=== PATIENT | male | born 1985 | race Caucasian/White ===

== ENCOUNTER 2021-02-17 13:08 | Emergency (ER) | payer OTHER ==
[2021-02-17 13:44] LABS: BASOPHIL 0.1 % (0-2); BILIRUBIN NEGATIVE (NEGATIVE); BLOOD NEGATIVE Ery/uL (NEGATIVE); CLARITY CLEAR (CLEAR); COLOR YELLOW (YELLOW); EOSINOPHIL 4.1 % (0-5); GLUCOSE (U) NORMAL (NORMAL); HCT 42.4 % (42.0-52.0); HGB 14.2 g/dl (13.2-18.0); LEUKOCYTES TRACE Leu/uL (NEGATIVE); LYMPHOCYTE 23.1 % (15-48); MCH 31.6 pg (25.0-31.0); MCHC 33.5 g/dL (32.0-36.0); MCV 94.2 fL (78.0-100.0); MONOCYTE 5.3 % (0-12); MPV 10.6 fL (6.0-9.5); NEUTROPHIL 67.1 % (41-80); NITRITE NEGATIVE (NEGATIVE); NRBC 0; PLT 279 K/uL (150-400); PROTEIN NEGATIVE (NEGATIVE); RDW 13.2 % (11.5-14.0); SPECIFIC GRAVITY 1.025 (1.001-1.030); UROBILINOGEN 0.2 mg/dL (0.2-1.0); WBC 7.8 K/uL (4.0-10.5)
[2021-02-17 13:51] LABS: BACTERIA 1+; URINARY RBC RARE
[2021-02-17 13:59] LABS: ALBUMIN 3.5 g/dL (3.4-5.0); BILIRUBIN - TOTAL 0.2 mg/dL (0.2-1.0); BUN/CREAT RATIO (CALC) 15.3 RATIO; CREATININE 0.98 mg/dL (0.67-1.17); GLOBULIN (CALCULATION) 3.6 g/dL; POTASSIUM 4.5 mmol/L (3.5-5.1); TOTAL PROTEIN 7.1 g/dL (6.4-8.2)
[2021-02-17] MEDS ORDERED: COLACE100 MG PO (15:53)
== END 2021-02-17 16:20 | disposition home or self-care (01) ==
LOC: FER 13:08
PROVIDERS: Nurse Practitioner Family
DX: K62.5 Hemorrhage of anus and rectum (principal); R10.84 Generalized abdominal pain; F17.210 Nicotine dependence, cigarettes, uncomplicated
CPT/HCPCS: 36415; 80053; 81001; 82150; 82270; 83690; 85025; 87088; J7030; Q9967